=== PATIENT | male | born 1965 | race Two or more races ===

== ENCOUNTER 2020-09-24 23:11 | Inpatient (IN) | payer SELFPAY ==
[~2020-09-24] VITALS: Ht 170.2 cm; Wt 77.2 kg
[2020-09-25] MEDS ORDERED: ONDANSETRON 2MG/ML, 2ML ONE
[2020-09-25] MEDS ORDERED: MORPHINE SULFATE 4 MG/ML, 1ML ONE
[2020-09-25] MEDS ORDERED: ONDANSETRON 2MG/ML, 2ML IVPush ONE
[2020-09-25] MEDS ORDERED: FAMOTIDINE 20 MG/2 ML IVPush ONE
[2020-09-25] MEDS ORDERED: MORPHINE SULFATE 4 MG/ML, 1ML IVPush PRN
[2020-09-25] MEDS ORDERED: FAMOTIDINE 20 MG/2 ML ONE (00:01)
[2020-09-25 00:02] LABS: MICROSCOPIC NOT IND
--- NOTE | 2020-09-25 00:13 | NUR ---
PT HERE FOR EPIGATRIC PAIN WITH NAUSEA. PIV PLACED. UA SENT TO LAB. PT MEDICATED FOR PAIN VSS. BLOOD DRAWN AND SENT TO LAB. FAMILY AT BEDSIDE. CALL LIGHT IN REACH
[2020-09-25 00:26] LABS: ALBUMIN 3.4 g/dL (3.4-5.0); ANION GAP 8 mmol/L (5-15); CALCIUM 8.3 mg/dL (8.5-10.1); CHLORIDE 92 mmol/L (98-107); CREATININE 1.38 mg/dL (0.7-1.3)
[2020-09-25 00:31] LABS: ALKALINE PHOSPHATASE 355 U/L (45-117); BILIRUBIN,TOTAL 0.4 mg/dL (0.2-1.0); TOTAL PROTEIN 7.1 g/dL (6.4-8.2); TROPONIN I < 0.015 ng/mL (0.000-0.045)
[2020-09-25 00:33] LABS: ALANINE AMINOTRANSFERASE 45 U/L (12-78)
[2020-09-25 00:39] LABS: BASOPHILS % (AUTO) 1 % (0-1); EOSINOPHILS % (AUTO) 1 % (1-7); LYMPHOCYTES % (AUTO) 45 % (22-44); MEAN CORPUSCULAR HEMOGLOBIN 32.5 pg (27.5-34.5); MEAN CORPUSCULAR HGB CONC 34.8 g/dL (33.2-36.2); MEAN PLATELET VOLUME 9.4 fL (7.4-10.4); MONOCYTES % (AUTO) 6 % (2-9); NEUTROPHILS % (AUTO) 48 % (42-75); PLATELET COUNT 257 x10^3/uL (130-400); RED CELL DISTRIBUTION WIDTH 13.3 % (9.4-14.8)
[2020-09-25] MEDS ORDERED: INSULIN SINGLE DOSE, ER ONE (00:42)
[2020-09-25 00:45] LABS: MD NO
--- NOTE | 2020-09-25 00:51 | NUR ---
PT MEDICATED WITH INSULIN FOR ELEVATED GLUCOSE. NS FLUID BOLUS RUNNING. VSS. PT READY FOR CT
[2020-09-25] MEDS ORDERED: SODIUM CHLORIDE FLUSH 10ML SYR IVF ONE ×2 (01:00)
[2020-09-25] MEDS ORDERED: SODIUM CHLORIDE 0.9% 1,000ML IVBOLUS ONE (01:00)
[2020-09-25] MEDS ORDERED: INSULIN SINGLE DOSE, ER IVPush ONE (01:00)
--- NOTE | 2020-09-25 01:44 | NUR ---
PT RESTING. [facility]SBG [id number]. REPORT TO CHRISTI LEONARD. VSS.
[2020-09-25 01:56] VITALS: BP 137/90
[2020-09-25] MEDS ORDERED: ONDANSETRON ODT 4 MG PO PRN (02:00)
[2020-09-25] MEDS ORDERED: DEXTROSE 4 GM TAB.CHEW PO PRN (02:00)
[2020-09-25] MEDS ORDERED: PROMETHAZINE 25 MG/ML, 1ML IM PRN (02:00)
[2020-09-25] MEDS ORDERED: GLUCAGON 1 MG IM PRN (02:00)
[2020-09-25] MEDS ORDERED: ACETAMINOPHEN 325 MG TABLET PO PRN (02:00)
[2020-09-25] MEDS ORDERED: hydrALAzine 20 MG/ML, 1ML IVPush PRN (02:00)
[2020-09-25] MEDS ORDERED: DEXTROSE 50%, 50ML SYRINGE IVPush PRN (02:00)
[2020-09-25] MEDS ORDERED: ONDANSETRON 2MG/ML, 2ML IVPush PRN (02:00)
[2020-09-25] MEDS ORDERED: KETOROLAC 30 MG/1 ML IV PRN (02:00)
[2020-09-25] MEDS: SODIUM CHLORIDE 0.9% 1,000 ML IV SCH ×3 (02:25→20:20)
[2020-09-25] MEDS: INSULIN GLARGINE 100 UNITS/ML, PEN SQ-INSULIN SCH ×2 (02:34→19:54)
[2020-09-25] MEDS: INSULIN LISPRO 100 UNITS/ML, PEN SQ-INSULIN SCH ×5 (02:34→19:46)
[2020-09-25 02:45] LABS: FREE T4 (FREE THYROXINE) 1.13 ng/dL (0.76-1.46)
[2020-09-25] MEDS ORDERED: OMNIPAQUE 350 MG/ML, 100ML BOTTLE ONE (03:19)
[2020-09-25 03:54] LABS: ESTIMATED AVERAGE GLUCOSE 355 mg/dL (0-126)
[2020-09-25 07:23] VITALS: BP 121/78
[2020-09-25] MEDS: SODIUM CHLORIDE FLUSH 10ML SYR IVF SCH ×2 (08:14→20:20)
[2020-09-25 12:48] VITALS: BP 103/56
[2020-09-25 20:20] VITALS: BP 120/74
[2020-09-26 02:10] VITALS: BP 117/79
[2020-09-26] MEDS: SODIUM CHLORIDE 0.9% 1,000 ML IV SCH (05:02)
[2020-09-26 05:40] LABS: ALANINE AMINOTRANSFERASE 35 U/L (12-78); ALBUMIN 2.4 g/dL (3.4-5.0); ANION GAP 3 mmol/L (5-15); CALCIUM 7.7 mg/dL (8.5-10.1); CHLORIDE 110 mmol/L (98-107)
[2020-09-26 05:43] LABS: ALKALINE PHOSPHATASE 125 U/L (45-117); BILIRUBIN,TOTAL 0.4 mg/dL (0.2-1.0); CHOL/HDL RATIO 5.2; CHOLESTEROL, TOTAL 167 mg/dL (140-239); CREATININE 0.68 mg/dL (0.7-1.3); HDL CHOL % 19 % (26-37); HDL CHOLESTEROL (DIRECT) 32 mg/dL (40-60); LDL CHOLESTEROL,CALCULATED 84 mg/dL (54-169); LDL/HDL RATIO 2.6 (0.5-3.0); TRIGLYCERIDES 253 mg/dL (50-200); VLDL CHOLESTEROL 51 mg/dL (0-25)
[2020-09-26 06:16] LABS: BASOPHILS % (AUTO) 1 % (0-1); EOSINOPHILS % (AUTO) 1 % (1-7); LYMPHOCYTES % (AUTO) 42 % (22-44); MD NO; MEAN CORPUSCULAR HEMOGLOBIN 31.8 pg (27.5-34.5); MEAN CORPUSCULAR HGB CONC 34.4 g/dL (33.2-36.2); MEAN PLATELET VOLUME 8.7 fL (7.4-10.4); MONOCYTES % (AUTO) 4 % (2-9); NEUTROPHILS % (AUTO) 52 % (42-75); PLATELET COUNT 189 x10^3/uL (130-400); RED CELL DISTRIBUTION WIDTH 13.3 % (9.4-14.8)
[2020-09-26 07:00] VITALS: BP 113/76
[2020-09-26] MEDS: SODIUM CHLORIDE FLUSH 10ML SYR IVF SCH (07:41)
[2020-09-26] MEDS: INSULIN LISPRO 100 UNITS/ML, PEN SQ-INSULIN SCH ×2 (07:41→11:00)
[2020-09-26] MEDS ORDERED: INSU100C5 SQ-INSULIN (12:59)
[2020-09-26 13:46] VITALS: BP 126/84
== END 2020-09-26 14:55 | disposition home or self-care (01) | DRG 682 ==
LOC: ED 09-25 00:33 → EDIP 09-25 01:25 → 3N 09-25 01:51 → DCLOUNGE 09-26 14:26
PROVIDERS: ADMIT Internal Medicine; ATTEND Family Medicine
DX: N17.9 Acute kidney failure, unspecified (principal); E11.00 Type 2 diabetes mellitus with hyperosmolarity without nonketotic hyperglycemic-hyperosmolar coma (NKHHC); E11.65 Type 2 diabetes mellitus with hyperglycemia; E86.0 Dehydration; F17.210 Nicotine dependence, cigarettes, uncomplicated; H53.8 Other visual disturbances; Z88.0 Allergy status to penicillin; Z79.899 Other long term (current) drug therapy; Z79.891 Long term (current) use of opiate analgesic; Z79.01 Long term (current) use of anticoagulants
CPT/HCPCS: 36415; 71045; 74177; 80053; 80061; 80320; 81003; 82962; 83036; 83690; 83735; 83880; 84100; 84439; 84443; 84484; 85025; 93005; 96361; 96374; 96375; G0378; J2405; Q9967; G0480; J1815; J2270; J7030